=== PATIENT | male | born 1960 | race Caucasian/White ===

== ENCOUNTER 2023-07-28 17:45 | Emergency (ER) | payer SELFPAY ==
[~2023-07-28] VITALS: Ht 188 cm; Wt 82.0 kg
[2023-07-28 18:03] VITALS: BP 130/68; PULSE 88; RESP 16; TEMP 98.4; O2SAT 95
[2023-07-28] MEDS ORDERED: LIDOCAINE HCL/PF 1% 10 MG/ML 5ML VIAL INFIL ONE (18:30)
[2023-07-28] MEDS ORDERED: TETANUS, DIPHTHERIA, PERTUSSIS VAC/PF 0.5ML (>10YR OLD) IM ONE (18:30)
[2023-07-28] MEDS ORDERED: IBUPROFEN 600MG TABLET PO ONE (18:30)
[2023-07-28] MEDS ORDERED: BACITRACIN ZINC OINT UDPKT TOP ONE (18:30)
== END 2023-07-28 19:59 | disposition home or self-care (01) ==
LOC: ER 17:45
DX: S01.81XA Laceration without foreign body of other part of head, initial encounter (principal); Z87.19 Personal history of other diseases of the digestive system; Y08.89XA Assault by other specified means, initial encounter; Y93.89 Activity, other specified; Y92.89 Other specified places as the place of occurrence of the external cause; Y99.8 Other external cause status
CPT/HCPCS: 99283; 90715; 12011; 90471; J3490